=== PATIENT | male | born 1995 | race Caucasian/White ===

== ENCOUNTER 2025-04-19 12:16 | Emergency (ER) | payer BC, SELFPAY ==
[2025-04-19 12:20] VITALS: BP 108/63; PULSE 88; RESP 18; TEMP 37.2; O2SAT 100
[2025-04-19 12:47] LABS: Hematocrit 48.0 % (42.0-52.0); Hemoglobin 15.9 g/dL (14.0-18.0); Immature Granulocyte Percent A 0.5 % (0-0.5); Immature Platelet Fraction Pct 4.9 % (0.9-11.2); Lymphocytes Absolute Auto 0.36 K/mm3 (0.9-3.2); Mean Corpuscular HGB Conc 33.1 g/dl (32-36); Mean Corpuscular Hemoglobin 27.7 pg (26-34); Mean Corpuscular Volume 83.6 fl (80-100); Nucleated Red Blood Cells Absolute Auto 0.000 K/mm3 (0.0-0.012); Nucleated Red Blood Cells Perc 0.0 % (0.0-0.2); Platelet Count Result 135 k/mm3 (150-375); Red Blood Count 5.74 M/mm3 (4.6-6.20); White Blood Count 6.4 K/mm3 (4.5-10.0)
--- NOTE | 2025-04-19 12:49 | ED_ITS ---
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 History of sucross intolerance. He patient's daughter had upper respiratory symptoms for the last 2 days. He denies any fever diarrhea abdominal pain constipation or coughing Related Data Allergies Allergy/AdvReac Type Severity Reaction Status Date / Time acetaminophen (From VicSDI Allergy Intermediate Hives Verified 04/19/25 12:18 NyQuil Cold/Flu Liquicap) dextromethorphan (From Vicks Allergy Intermediate Hives Verified 04/19/25 12:18 NyQuil Cold/Flu Liquicap) doxylamine (From Vicks Allergy Intermediate Hives Verified 04/19/25 12:18 NyQuil Cold/Flu Liquicap) Review of Systems 2 Review of Systems: All systems reviewed & are unremarkable except as noted in HPI and below Exam 2 Narrative: General appearance: Well-developed, well-nourished Skin: Normal color Head: Normocephalic, nontraumatic Eyes: Clear conjunctiva ENT: Oropharynx normal, ears normal, nose normal Neck: Supple, nontender Chest and respiratory: Airway patent, no respiratory distress, no accessory muscle use Heart: Regular rate/rhythm Abdomen: Soft, nontender, no organomegaly, quiet bowel sounds Vascular: Normal peripheral pulses, normal capillary refill. Musculoskeletal: Normal range of motion, nontender back Neurologic: Alert and oriented ?3, DIRECTOR OF MAINTENANCE is normal as tested, no gross motor deficit Course Vital Signs Vital signs: Vital Signs Temperature 37.2 C 04/19/25 12:20 Pulse Rate 88 04/19/25 12:20 Respiratory Rate 18 04/19/25 12:20 Blood Pressure 108/63 04/19/25 12:20 Pulse Oximetry 100 04/19/25 12:20 Oxygen Delivery Room Air 04/19/25 12:20 Temperature 37.2 C 04/19/25 12:20 Pulse Rate 88 04/19/25 12:20 Respiratory Rate 18 04/19/25 12:20 Blood Pressure 108/63 04/19/25 12:20 Pulse Oximetry 100 04/19/25 12:20 Oxygen Delivery Room Air 04/19/25 12:20 MDM - Nausea/Vomiting/Diarrhea MDM Narrative Medical decision making narrative: Patient presents with viral infection like symptoms Vital signs are stable Physical examination is unremarkable Differential diagnosis viral infection like symptoms, dehydration, electrolyte imbalance, Blood workup today includes CBC, CMP showed insignificant abnormality Patient tested negative for COVID flu RSV Urinalysis showed no evidence of infection In the ED patient received 1 L normal saline, 4 mg of Zofran, 30 mg of Toradol IV with remarkable improvement Diagnosis viral syndrome The pt was discharged to home.the pt,s condition upon discharge was fair,education was provided to the pt in reference to the final impression,discharge study results,treatment,prognosis and need for follow up . Differential Diagnosis Differential diagnosis: Likely other (As above) Medical Records Attestation: I reviewed the patient's medical records. Lab Data Attestation: I reviewed the patient's lab results. 04/19/25 12:36 04/19/25 12:36 Labs: Lab Results 04/19/25 04/19/25 04/19/25 Range/Units 12:36 12:49 13:01 WBC 6.4 (4.5-10.0) K/mm3 RBC 5.74 (4.6-6.20) M/mm3 Hgb 15.9 (14.0-18.0) g/dL Hct 48.0 (42.0-52.0) % MCV 83.6 (80-100) fl MCH 27.7 (26-34) pg MCHC 33.1 (32-36) g/dl RDW 12.9 (11.5-14.5) % Plt Count 135 L (150-375) k/mm3 MPV 10.7 H (7.4-10.4) fl Immature Gran % (Auto) 0.5 (0-0.5) % Neut % (Auto) 89.5 H (45.5-73.1) % Lymph % (Auto) 5.6 L (18.3-44.2) % [place] % (Auto) 3.3 (2.6-8.5) % Eos % (Auto) 0.8 (0-4.4) % Baso % (Auto) 0.3 (0.2-1.2) % Lymph # (Auto) 0.36 L (0.9-3.2) K/mm3 [place] # (Auto) 0.2 (0.1-0.6) K/mm3 Eos # (Auto) 0.1 (0-0.3) K/mm3 Baso # (Auto) 0.0 (0.0-0.1) K/mm3 Abs Immat Gran (auto) 0.03 (0.00-0.031) K/mm3 Absolute Neuts (auto) 5.7 (1.3-6.7) K/mm3 Absolute Nucleated RBC 0.000 (0.0-0.012) K/mm3 Nucleated RBC % 0.0 (0.0-0.2) % % Immature Plt Fraction 4.9 (0.9-11.2) % Sodium 136 L (137-145) mmol/L Potassium 3.8 (3.4-5.0) mmol/L Chloride 101 (98-107) mmol/L Carbon Dioxide 29 (22-30) mmol/L Anion Gap 6 (4-12) mmol/L BUN 17 (9-20) mg/dL Creatinine 1.05 (0.7-1.3) mg/dL Estim Creat Clear Calc 99 ml/min Estimated GFR > 60 (59 - ) Glucose 101 (65-110) mg/dL Calcium 9.5 (8.4-10.2) mg/dL Total Bilirubin 0.9 (0.2-1.3) mg/dL AST 29 (17-59) U/L ALT 22 (6-50) U/L Alkaline Phosphatase 72 (38-126) U/L Total Protein 8.2 (6.3-8.2) g/dL Albumin 4.8 (3.5-5.1) g/dL Lipase 156 (23-300) U/L Urine Color Yellow (Yellow) Urine Appearance Clear (Clear) Urine pH 8.0 (5.0-9.0) Ur Specific [place] 1.022 (1.001-1.035) Urine Protein Negative (Negative) mg/dL Urine Glucose (UA) Negative (Negative) mg/dL Urine Ketones Negative (Negative) mg/dL Ur Blood (Man) Negative (Negative) Urine Nitrate Negative (Negative) Urine Bilirubin Negative (Negative) Urine Urobilinogen 1.0 (<2.0) mg/dL Leukocyte Esterase Rfl Negative (Negative) RANDY/UL Influenza A (RT-PCR) Negative (Negative) Influenza B (RT-PCR) Negative (Negative) RSV (RT-PCR) Negative (Negative) SARS-CoV-2 RNA (RT-PCR) Negative (Negative) Critical Care Time Critical Care Time Critical Care Time: No Discharge Plan Discharge Clinical Impression: Acute viral syndrome Patient Disposition: Home Condition: Improved Instructions: Viral Syndrome (ED) Additional Instructions: Return if symptoms are worsening , call your family physician for appointment, take Tylenol, ibuprofen as as needed for aches and pain, continue home medications. Patient Language: Yi Prescriptions: New ondansetron 4 mg tablet,disintegrating 4 mg PO Q4H 0 Days Qty: 10 0RF Rx Instructions: give 1st dose 30min before emetogenic chemo Follow-up/Referrals: Chaitanya,MD Cyndy [Primary Care Provider, Unknown] Stand Alone Forms: Work/School Release IP
[2025-04-19 12:58] LABS: Alanine Aminotransferase 22 U/L (6-50); Albumin Level 4.8 g/dL (3.5-5.1); Alkaline Phosphatase 72 U/L (38-126); Anion Gap 6 mmol/L (4-12); Aspartate Amino Transferase 29 U/L (17-59); Bilirubin,Total 0.9 mg/dL (0.2-1.3); Blood Urea Nitrogen 17 mg/dL (9-20); Calcium 9.5 mg/dL (8.4-10.2); Carbon Dioxide 29 mmol/L (22-30); Chloride 101 mmol/L (98-107); Estimated CRCL calculation 99 ml/min; Estimated Glomerular Filt Rate > 60; Glucose 101 mg/dL (65-110); Lipase 156 U/L (23-300); Potassium 3.8 mmol/L (3.4-5.0); Sodium 136 mmol/L (137-145); Total Protein 8.2 g/dL (6.3-8.2)
--- OUTSIDE RECORDS SUMMARY | 2025-04-19 12:58 | XMS_ITS | Clinical Summary ---
Author Organization [address] Address [address] [place] [id number] Care Team Providers Care Proofer Name Role Phone Cyndy Tavares MD Primary Care Provi saloni Allergies Active Allergy Reactions Criticality Noted Date Comments Orkywtioc-Pfs-Zo-Acetaminophen Hives Medium 09/25 Nyquil Unknown 11/04/2018 Medications SUCRAID 8,500 unit/mL solution 03/04/2019 Ac tive famotidine (PEPCID) 40 mg tablet TAKE 1 TABLET BY MOUTH EVERY DAY TO TWICE DAILY NEEDED 09/13/[address] (PROTONIX) 40 mg EC tablet Take 1 tablet (40 mg total) by mouth daily 03/07/2023 Active meloxicam (MOBIC) 15 mg tabletIndication s:Left wrist pain Take 1 tablet (15 mg total) by mouth daily 14 tablet 02/24/2025 Active Active Problems Problem Noted Date Diagnosed Date Annual physical exam 07/06/2023 Overview (07/08/2024): Encouraged healthy lifestyle changes PMH: 07/06/23 Last PSA: @40-45 Last colonoscopy: 01/2023 normal Last Hep C: Last tdap: 04/2021 Last Influenza: up to date Last COVID: up to date Assessment & Plan (07/08/2024 8:21 AM SENIOR SOLUTIONS ARCHITECT): Encouraged healthy lifestyle changes PMH: 07/06/23 Last PSA: @40-45 Last colonoscopy: 01/2023 normal Last Hep C: Last tdap: 04/2021 Last Influenza: up to date Last COVID: up to date Assessment & Plan (07/06/2023 12:06 PM SENIOR SOLUTIONS ARCHITECT): PMH: 07/06/23 Last PSA: Last colonoscopy/cologuard: 01/2023 normal Last Hep C: Last tdap: 04/2021 Last Prevnar/pneumovax: Last Shingrix: Last eye exam: Stress 11/07/2022 Assessment & Plan (12/18/2023 10:18 AM CDT): Chronic, stable We reviewed medication- declined We reviewed therapy- he will consider Continue healthy habits for his mood Call for questions Assessment & Plan (07/06/2023 12:08 PM SENIOR SOLUTIONS ARCHITECT): Chronic. With increased/ constant stress due to having 9 month old child. - encouraged to consider counseling - work on coping techniques Assessment & Plan (11/07/2022 3:42 PM CDT): Patient reiterated no suicidal thoughts at this time; contact 911 and go to the ER if becomes suicidal encouraged healthy diet and exercise encouraged patient to see a counselor use support structures you have in place consider meditation-look at [place] try to work on healthy sleep habits Decrease social media usage If mood worsens or changes, please contact the office Anything emergent, to the er Chest pain 08/07/2022 Assessment & Plan (07/06/2023 12:16 PM SENIOR SOLUTIONS ARCHITECT): Chronic for many years, recent flare-up over the last 2 weeks. Pain is described as stabbing, fleeting lasting a few seconds to a minute. Given reassuring vitals, ER work-up though done in 11/2022 negative, discussed options with patient and he is agreeable with Monitoring symptoms at this time. Etiology seems less likely cardiac pulmonary or musculoskeletal. Consider recent GI flare-up and component of anxiety. However, if symptoms persist or worsen, we will refer to Cardiology. ER precautions: Chest pain lasting 5 minutes, accompanied by shortness of breath, palpitations, feeling as if you will faint, radiating chest pain to the left arm back jaw, nausea, fatigue. Assessment & Plan (08/07/2022 8:37 AM CDT): EKG NSR, no acute ST-T wave changes Low risk for heart disease- but we can always place the referral if concerns Will check CXR Will refer back to GI given GERD, some pain being epigastric Continue Omeprazole, Sulcraid Will check labs Further guidance once we have the results Call for questions Eczema 05/09/2019 Assessment & Plan (07/06/2023 12:07 PM SENIOR SOLUTIONS ARCHITECT): Chronic. With mild flare up controlled with triamcinolone cream. Monitor Assessment & Plan (05/09/2019 10:10 AM SENIOR SOLUTIONS ARCHITECT): Will refill his triamcinolone Use twice a day as needed Continue supportive care Continue to follow with Derm Change in bowel habits 04/17/2018 Assessment & Plan (06/03/2021 11:05 AM SENIOR SOLUTIONS ARCHITECT): Call Dr Solares about his medication Set up wellness so we can review how he has been doing Call for questions Assessment & Plan (05/09/2019 10:08 AM SENIOR SOLUTIONS ARCHITECT): Improved Continue current regimen Continue to follow GI Call for questions or concerns Assessment & Plan (11/04/2018 8:17 AM CDT): Continue current regimen Update me after next visit with GI Call for questions or concerns Gastroesophageal reflux disease 04/17/2018 Assessment & Plan (07/06/2023 12:07 PM SENIOR SOLUTIONS ARCHITECT): Chronic. With recent flare-up due to increased sugar and diet. Continue pantoprazole 40 mg daily and famotidine 40 mg twice daily. Follow-up with GI as needed. Assessment & Plan (08/07/2022 8:38 AM CDT): Chronic Concern for possible source of chest discomfort Will place referral to GI for follow up Continue omperazole Update me with any changes Assessment & Plan (05/09/2019 10:09 AM SENIOR SOLUTIONS ARCHITECT): Improved Continue to monitor symptoms Continues sucraid Continue to avoid triggers Call if symptoms change or worsen Assessment & Plan (11/04/2018 8:18 AM CDT): Continue on current meds, encouraged healthy diet and exercise Avoid trigger foods including: caffeine, spicy, fried foods, tomatoes, cucumbers, and mint Pt completed h pylori breath test from GI Keep follow up with GI Update me with any changes 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 Stable. Monitor Assessment & Plan (11/04/2018 8:18 AM CDT): Continue to follow with urology Update me with any changes Resolved Problems Problem Noted Date Diagnosed Date Resolved Date [place] 04/17/2018 07/08/2024 Assessment & Plan (05/09/2019 10:08 AM SENIOR SOLUTIONS ARCHITECT): Improved with current regimen Continue to follow with GI Call for questions or concerns Erectile dysfunction 11/09/2017 025 Assessment & Plan (05/09/2019 10:08 AM SENIOR SOLUTIONS ARCHITECT): Continue supportive care Assessment & Plan (11/04/2018 8:17 AM CDT): Continue viagra Update me with any changes Penile pain 11/09/2017 07/08/2024 Assessment & Plan (07/06/2023 12:07 PM SENIOR SOLUTIONS ARCHITECT): Chronic. No recent symptoms. Monitor Assessment & Plan (05/09/2019 10:09 AM SENIOR SOLUTIONS ARCHITECT): Without a source Monitor symptoms If they persist or change, I do want him to schedule follow-up with Urology Call for questions or concerns Assessment & Plan (11/04/2018 8:18 AM CDT): Continue to follow with urology Call for questions or concerns Encounters Date Type Department Care Team Description 02/24/2025 1:00 PM CDT Office Visit [facility] [address] [phone] Cassi Williamson NP Left wrist pain (Primary Dx) 02/24/2025 Telephone [facility] [address] [phone] Cyndy Tavares MD Medical Question/Miscellaneo us from Last 3 Months Immunizations Immunization Administration Dates Next Due Influenza, Quadrivalent, Lacie l Culture-based MDCK, Preservative Free, Antibiotic Free, Intramuscular 03/24/2022 Influenza, Quadrivalent, Rec ombinant, Egg Free, Preservative Free, Intramuscular 03/17/2020 Influenza, Quadrivalent, Spl it, Preservative Free, Intramuscular 03/18/2023,02/14/2021,05/08/2019,03/18,03/17/2018 Influenza, Trivalent, Cell Culture-based MDCK, Preservative Free, Antibiotic Free, Intramuscular 04/05/2024 Influenza, Unspecified 03/17/2020 Tdap 05/03/2021 Surgical History Surgery Date Site/Laterality Comments COLONOSCOPY Medical History Medical History Date Comments GERD (gastroesophageal reflux disease) Eczema Erectile dysfunction 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 Never 07/08/2024 Q2: How many drinks containi ng alcohol do you have on a typical day when you are drinking? Patient does not drink Q3: How often do you have si x or more drinks on one occasion? Never 07/08/2024 PHQ-2 Answer Date Recorded PHQ-2 Total Score (If total score is 3 or more points, staff should administer the PHQ-9) 0 02/24/2025 PHQ-9 Answer Date Recorded PHQ-9 Total Score 3 07/08/2024 Sex and Gender Information Value Date Recorded Sex Assigned at Not on file Legal Sex Male 9:14 PM SENIOR SOLUTIONS ARCHITECT Gender Identity Male 06/02/2021 9:56 AM SENIOR SOLUTIONS ARCHITECT Sexual Orientation Bisexual 06/02/2021 9: 56 AM SENIOR SOLUTIONS ARCHITECT Last Filed Vital Signs Vital Sign Reading Time Taken Comments Blood Pressure 108/60 02/24/2025 12:58 PM CDT Pulse 71 02/24/2025 12:58 PM CDT Temperature 37 C (98.6 F) 02/24/2025 12:58 PM CDT Respiratory Rate 16 02/24/2025 12:58 PM CDT Oxygen Saturation 97% 02/24/2025 12:58 PM CDT Inhaled Oxygen Concentration - - Weight 79.8 kg (176 lb) 02/24/2025 12:58 PM CDT Height 185.4 cm (6' 1) 02/24/2025 12:58 PM CDT Body Mass Index 23.22 02/24/2025 12:58 PM CDT Plan of Treatment Health Maintenance Due Date Last Done Comments Hepatitis B Screening 2011 HPV Vaccines (1 - 3-dose SCDM series) 2020 Covid-19 Vaccine ( season) 2025 04/05/2024, 03/18/2023, 03/24/2022, Additional history exists Influenza Vaccine (#1) 2025 , 03/18/2023, 03/24/2022, Additional history exists Regular Well Visit/Exam 18-64 07/08/2025 07/08/2024, 07/06/2023 Depression Screening 02/24/2026 02/24/2025, 07/08/2024, 06/19/2024, Additional history exists DTaP/Tdap/Td Vaccine (2 - Td or Tdap) 05/03/2031 05/03/2021 Hepatitis C Screening Completed 07/08/2024 Pneumococcal vaccine <65 Aged Out No longer eligible based on patient's age to complete this topic Procedures Procedure Name Priority Date/Time Associated Diagnosis Comments HEPATITIS C ANTIBODY Routine 07/08/2024 12:41 PM SENIOR SOLUTIONS ARCHITECT Need for hepatitis C screening test from Last 3 Months or Most Recently Relevant to Health Maintenance Results * Hepatitis C antibody Blood (07/08/2024 12:41 PM SENIOR SOLUTIONS ARCHITECT) Hep C Ab NON-REACTI VE NON-REACT SERAFIN [facility] Comment: HCV antibody was non-reactive. There is no laboratory evidence of HCV infection. In most cases, no further action is required. However, if recent HCV exposure is suspected, a test for HCV RNA (test code 57071) is suggested. For additional information please refer to http://education.Manyeta/faq/YPG29z3 (This link is being provided for informational/ educational purposes only.) Blood 07/08/2024 12:4 1 PM SENIOR SOLUTIONS ARCHITECT 07/08/2024 12:41 PM SENIOR SOLUTIONS ARCHITECT Narrative [facility] - 07/10/2024 3:45 AM SENIOR SOLUTIONS ARCHITECT FASTING:YES FASTING: YES us Cyndy Tavares MD LAB MICROBIOLOGY - GENERAL ORDERABLES Final Result MICHELLE [facility] [id number] [place] [address] from Last 3 Months or Most Recently Relevant to Health Maintenance Insurance [employer] OOS [facility] ACCESS Care Teams Proofer Relationship Specialty Start Date End Date Cyndy Tavares MD [facility] [address] [place] [address] PCP - General Family Medicine 08/17/18
--- OUTSIDE RECORDS SUMMARY | 2025-04-19 12:58 | XMS_ITS | Clinical Summary ---
Author Organization [facility] Address [address] [place] [address] Phone Care Team Providers Care Discharge Planner Name Role Phone Cyndy Tavares MD Primary Care Provider [phone] Allergies Active Allergy Reactions Criticality Noted Date Comments Ttejj-Olxlolos-Wfp-Turp-Pet Hives High 12/23/19 23 Medications famotidine (PEPCID) 40 mg tablet TAKE 1 TABLET BY MOUTH EVERY DAY TO TWICE DAILY NEEDED 3 Active omeprazole (PriLOSEC) 40 mg Capsule, Delayed Release(E.C.) 1 Active triamcinolone acetonide (KENALOG) 0.1 % Cream APPLY TO AFFECTED AREAS SCATTERED TO BODY TWICE A DAY NEEDED FOR RASH 3 Active Social History Tobacco Use Types Packs/Day Years Used Date Smoking Tobacco: Never Assessed Feeling Safe Answer Date Recorded Are you in a relationship wi th someone who hurts you emotionally and/or physically? No 12/22/2022 Sex and Gender Information Value Date Recorded Sex Assigned at Not on file Legal Sex Male 4:48 PM CDT Gender Identity Not on file Sexual Orientation Not on file Last Filed Vital Signs Vital Sign Reading Time Taken Comments Blood Pressure 155/55 12/22/2022 10:26 PM CDT Pulse 59 12/22/2022 5:10 PM CDT Temperature 36.8 C (98.2 F) 12/22/2022 10:26 PM CDT Respiratory Rate 18 12/22/2022 5:10 PM CDT Oxygen Saturation 100% 12/22/2022 10:26 PM CDT Inhaled Oxygen Concentration - - Weight 83.9 kg (185 lb) 12/22/2022 5:10 PM CDT Height 185.4 cm (6' 1) 12/22/2022 5:10 PM CDT Body Mass Index 24.41 12/22/2022 5:10 PM CDT Plan of Treatment Health Maintenance Due Date Last Done Comments HEPATITIS B VACCINES (1 of 3 - 19+ 3-dose series) 2012 HPV VACCINES (1 - 3-dose SCD M series) 2020 INFLUENZA VACCINE (#1) 2024 2, 02/14/2021, 03/17/2020, Additional history exists DTAP/TDAP/TD VACCINES (2 - T d or Tdap) 05/03/2031 05/03/2021 Insurance [facility] [employer] BLUE PPO Care Teams Discharge Planner Relationship Specialty Start Date End Date Cyndy Tavares MD [facility] [address] [place] [phone] PCP - General Family Practice 12/22/22
--- OUTSIDE RECORDS SUMMARY | 2025-04-19 12:58 | XMS_ITS | Clinical Summary ---
Author Organization [facility] Address [address] [place] [id number] Care Team Providers Care Twisting Press Operator Name Role Phone Cyndy Tavares MD Primary Care Provider Allergies Active Allergy Reactions Criticality Noted Date Comments Jrvnoyvbs-Xazixrcbnz-Mz-Apap Hives 019 Medications No known medications Family History Medical History Relation Comments Diverticulosis Father Hypertension Father Hypertension Mother Ulcerative Colitis Mother Relation Status Comments Father Mother Social History Tobacco Use Types Packs/Day Years Used Date Smoking Tobacco: Never Smokeless Tobacco: Never Alcohol Use Standard Drinks/Week Comments No 0 (1 standard drink = 0.6 oz pur e alcohol) AUDIT-C Answer Date Recorded Frequency of Alcohol Consumption Never 09/25/2018 Average Number of Drinks Not on file 019 Frequency of Binge Drinking Not on file 05/2018 Sex and Gender Information Value Date Recorded Sex Assigned at Not on file Legal Sex Male 12:39 PM CDT Gender Identity Not on file Sexual Orientation Not on file Last Filed Vital Signs Vital Sign Reading Time Taken Comments Blood Pressure 94/53 09/25/2018 5:15 PM CDT Pulse 67 09/25/2018 5:15 PM CDT Temperature 36.5 C (97.7 F) 09/25/2018 5:03 PM CDT Respiratory Rate 28 09/25/2018 5:15 PM CDT Oxygen Saturation 100% 09/25/2018 5:15 PM CDT Inhaled Oxygen Concentration - - Weight 70.3 kg (155 lb) 09/25/2018 1:05 PM CDT Height 185.4 cm (6' 1) 09/25/2018 1:05 PM CDT Body Mass Index 20.45 09/25/2018 1:05 PM CDT Plan of Treatment Health Maintenance Due Date Last Done Comments Annual Physical 1996 Hepatitis C 2011 DTaP, Tdap and Td Vaccines (1 - Tdap) 2012 Hepatitis B Vaccines (1 of 3 - 19+ 3-dose series) 2012 HPV Vaccines (1 - 3-dose SCDM series) 2020 COVID-19 Vaccine (1 - season) 2025 Influenza Adult (#1) 2025 03/17/2020, 05/08/2019, 03/18/2018, Additional history exists Hepatitis A Vaccines Aged Out No long er eligible based on patient's age to complete this topic Meningococcal B Vaccine Aged Out No l onger eligible based on patient's age to complete this topic Meningococcal Vaccine Aged Out No hugh rao eligible based on patient's age to complete this topic Pneumococcal Vaccine: Pediatrics (0 to 5 Years) and At-Risk Patients (6 to 49 Years) Aged Out No longer eligible based on patient's age to complete this topic RSV Immunizations Under 20 Months Aged Out No longer eligible based on patient's age to complete this topic Insurance [facility] Care Teams Twisting Press Operator Relationship Specialty Start Date End Date Cyndy Tavares MD [address] [facility] [address] [place] [address] PCP - General FAMILY PRACTICE 09/24/18
[2025-04-19 12:59] LABS: Add Urine Microscopic? NO; Appearance Urine Clear (Clear); Glucose Urine UA Negative (Negative); Leukocyte Esterase Ur Negative LEU/UL (Negative); Nitrate Urine Negative (Negative); Specific Grav Ur 1.022 (1.001-1.035)
[2025-04-19] MEDS: ONDANSETRON INJ 4 MG/2 ML VIAL IV PUSH (13:00)
[2025-04-19] MEDS: KETOROLAC 30 MG/ML VIAL (*BKC) IV PUSH (13:00)
[2025-04-19] MEDS: SODIUM CHLORIDE 0.9% IV 1,000 ML 999 ML IV CONT (13:01)
[2025-04-19 13:42] LABS: Influenza A QL RT-PCR Negative (Negative); Influenza B QL RT-PCR Negative (Negative); RSV RNA, RT-PCR Negative (Negative); SARS-CoV-2 RNA PCR Negative (Negative)
== END 2025-04-19 14:33 | disposition home or self-care (01) ==
PROVIDERS: Emergency Medicine; Emergency Provider Emergency Medicine; PCP Family Medicine
DX: B34.9 Viral infection, unspecified (principal); Z20.822 Contact with and (suspected) exposure to COVID-19
CPT/HCPCS: 36415; 80053; 81003; 83690; 85025; 85055; 87637; 96361; 96374; 96375; 99284; J1885; J2405; J7030